=== PATIENT | male | born 1950 | race Caucasian/White ===

== ENCOUNTER 2019-04-30 16:51 | Emergency (ER) | payer OTHER ==
[~2019-04-30] VITALS: Ht 180.3 cm; Wt 106.6 kg
[~2019-04-30 16:51] MED LIST: ASA81 PO; CILO100T PO; CLON0.2T PO; COLL30OI2 TP; DOCU250C14 PO; DOXA2TAB2 PO; ESOM40CA PO; GLYB5TAB7 PO; HYDR-3917 PO; IBUP-1970 PO; INSU100V11 SQ; METO-290 PO; MIDO5TAB PO; MYCO500T PO; NEBI5TAB3 PO; NYST15PO2 TP; ONDA4TAB5 PO; OXYC20TA55 PO; POLY17PO4 PO; RIVA10TA PO; ROSU10TA PO; SEVE800T8 PO; SSREG SUBCUT
[2019-04-30 17:00] VITALS: BP_SYST 113
--- NOTE | 2019-04-30 17:13 | NUR ---
Patient presented to ER with cough & congestion. Patient A&Ox4, respiations labored, placed on pulse-ox monitor upon arrival sats 98%. Patient arrived with daughter, per patient & daughter pt was seen at Dr. Morris office prior to ER with cough and congestion x1week. Patient was instructed to seek medical attention in ER. Patient states he was hospitalized 04/16/19 for Polycystectomy and is on Dialysis ././Sat.
--- NOTE | 2019-04-30 17:15 | NUR ---
Patient to ER bed 1 to gown for evaluation. Side rails up. Report given to Casi TREVINO.
--- NOTE | 2019-04-30 17:29 | NUR ---
ER Dr. Strauss at bedside examining patient.
[2019-04-30 18:03] LABS: BASOPHILS % (AUTO) 0.5 % (0.0-2.0); EOSINOPHILS # (AUTO) 0.2 K/uL (0.0-0.4); EOSINOPHILS % (AUTO) 1.5 % (0.0-4.0); HEMATOCRIT 32.6 % (36-54); HEMOGLOBIN 9.9 g/dL (14.0-18.0); LYMPHOCYTES # (AUTO) 1.3 K/uL (1.0-5.5); LYMPHOCYTES % (AUTO) 13.2 % (20.5-51.5); MEAN CORPUSCULAR HEMOGLOBIN 27 pg (27-31); MEAN CORPUSCULAR HGB CONC 31 % (32-36); MEAN CORPUSCULAR VOLUME 88 fL (79.0-98.0); MONOCYTES # (AUTO) 1.2 K/uL (0.0-1.0); MONOCYTES % (AUTO) 11.5 % (1.7-9.3); NEUTROPHILS # (AUTO) 7.5 K/uL (1.8-7.7); NEUTROPHILS % (AUTO) 73.3 % (40.0-70.0); PLATELET COUNT (AUTO) 150 K/uL (130-430); RED BLOOD CELL COUNT(AUTO) 3.69 MIL/uL (4.2-6.2); RED CELL DISTRIBUTION WIDTH 20.2 % (9.0-15.0); WHITE BLOOD COUNT (AUTO) 10.2 K/uL (4.8-10.8)
[2019-04-30 18:14] LABS: CALCIUM 9.6 mg/dL (8.4-11.0); CREATININE 4.46 mg/dL (0.55-1.30); POTASSIUM 4.4 mmol/L (3.5-5.1)
[2019-04-30 18:19] LABS: ALBUMIN 2.2 g/dL (3.4-4.8); TOTAL BILIRUBIN 0.7 mg/dL (0.0-1.0)
[2019-04-30] MEDS ORDERED: PIPERACILLIN/TAZO 3.375 GM in NS 50 ML IV ONE (18:30)
[2019-04-30] MEDS ORDERED: VANCOMYCIN HCL 1,000 MG in NS 250 ML IV ONE (18:30)
[2019-04-30] MEDS ORDERED: MORPHINE 4 MG/ML INJ. SYRINGE IVP ONE (18:45)
[2019-04-30] MEDS ORDERED: VANCOMYCIN HCL 1000 MG/VIAL IV ONE ×3 (18:45→19:34)
[2019-04-30] MEDS ORDERED: PIPERACILLIN/TAZOBACTAM 3.375 GM/VIAL (ZOSYN) IV ONE ×2 (18:47→19:27)
--- NOTE | 2019-04-30 19:02 | NUR ---
Report given to Kehinde TREVINO
--- NOTE | 2019-04-30 19:50 | NUR ---
Pt refuses to be admitted to the hospital. Dr. Strauss states pt may leave after the completion of antibiotics.
--- NOTE | 2019-04-30 20:30 | NUR ---
Pt's family is requesting to speak with ER MD to request a prescription for IV antibiotics to be given during dialysis treatment
--- NOTE | 2019-04-30 20:30 | NUR ---
Ajay aggarwal in ED - 04/30/19 at 2105 by [email or web address] RAMESH Stewart at bedside examining patient.
--- NOTE | 2019-04-30 20:45 | NUR ---
Dr. Stewart at bedside speaking with family
[2019-04-30 22:25] VITALS: BP_SYST 113
--- NOTE | 2019-04-30 22:25 | NUR ---
Patient does not wish to proceed with medical care recommended by Dr. Strauss. Patient given information related to possible complications, up to and including , which could occur as a result of leaving hospital at this time. Patient verbalizes understanding of risks involved leaving against medical advice. Patient has signed AMA form.
== END 2019-04-30 22:55 | disposition left against medical advice (07) ==
LOC: SED 16:51
DX: J18.1 Lobar pneumonia, unspecified organism (principal); R79.89 Other specified abnormal findings of blood chemistry; I10 Essential (primary) hypertension; F03.90 Unspecified dementia, unspecified severity, without behavioral disturbance, psychotic disturbance, mood disturbance, and anxiety; Z99.2 Dependence on renal dialysis; Z79.82 Long term (current) use of aspirin; Z79.899 Other long term (current) drug therapy
CPT/HCPCS: 36415; 36600; 71045; 80053; 82803; 83605; 84484; 85025; 87040; 93005; 96365; 96366; 96367; 96375; 99284; J2270; J2543; J3370

== ENCOUNTER 2019-05-05 12:09 | Inpatient (IN) | payer OTHER ==
[~2019-05-05] VITALS: Ht 180.3 cm; Wt 103.0 kg
[2019-05-05 12:33] VITALS: BP_SYST 158
--- NOTE | 2019-05-05 12:38 | NUR ---
Placed in room 07 . Placed on cloth hand, blood pressure machine and pulse oximeter. To gown for exam. Side rails up.
--- NOTE | 2019-05-05 12:38 | NUR ---
Dialysis Sh[facility], Sat. Shunt to [facility]
--- NOTE | 2019-05-05 12:39 | NUR ---
ER Dr. Wall at bedside examining patient.
--- NOTE | 2019-05-05 12:40 | NUR ---
Patient presented to ER with C/o Nausea nad pain. Patient A&Ox4, skin pink, cap refill brisk pain 8/10, nausea, denies V/D. Patient states pain is in rectum 8/10 with nausea since last week. Patient states he was seen in [facility] ER 04/30/19 pt left AMA.
[2019-05-05] MEDS ORDERED: HYDROcodone/ACETAMIN 5-325 MG TAB (NORCO/ VICODIN) PO ONE (13:00)
[2019-05-05] MEDS ORDERED: ONDANSETRON 4 MG ODT TAB PO ONE (13:15)
--- NOTE | 2019-05-05 13:15 | NUR ---
Pt requested Zofran for nausea. Dr. Wall notified. Orders to be received.
[2019-05-05 13:16] LABS: BASOPHILS # (AUTO) 0.1 K/uL (0.0-0.2); BASOPHILS % (AUTO) 0.6 % (0.0-2.0); EOSINOPHILS # (AUTO) 0.1 K/uL (0.0-0.4); EOSINOPHILS % (AUTO) 1.3 % (0.0-4.0); HEMATOCRIT 32.9 % (36-54); HEMOGLOBIN 10.1 g/dL (14.0-18.0); LYMPHOCYTES # (AUTO) 1.1 K/uL (1.0-5.5); LYMPHOCYTES % (AUTO) 12.4 % (20.5-51.5); MEAN CORPUSCULAR HEMOGLOBIN 27 pg (27-31); MEAN CORPUSCULAR HGB CONC 31 % (32-36); MEAN CORPUSCULAR VOLUME 88 fL (79.0-98.0); MONOCYTES # (AUTO) 1.1 K/uL (0.0-1.0); MONOCYTES % (AUTO) 11.9 % (1.7-9.3); NEUTROPHILS # (AUTO) 6.6 K/uL (1.8-7.7); NEUTROPHILS % (AUTO) 73.8 % (40.0-70.0); PLATELET COUNT (AUTO) 148 K/uL (130-430); RED BLOOD CELL COUNT(AUTO) 3.74 MIL/uL (4.2-6.2); RED CELL DISTRIBUTION WIDTH 20.1 % (9.0-15.0)
[2019-05-05 13:31] LABS: CALCIUM 10.4 mg/dL (8.4-11.0); CREATININE 4.74 mg/dL (0.55-1.30); POTASSIUM 4.4 mmol/L (3.5-5.1)
[2019-05-05 13:33] LABS: INR 1.1 (0.80-1.20)
[2019-05-05 13:35] LABS: ALBUMIN 2.3 g/dL (3.4-4.8)
--- NOTE | 2019-05-05 14:22 | NUR ---
called dr correa, per dr garcia
--- NOTE | 2019-05-05 14:27 | NUR ---
Medication reconciliation completed with information provided by pt. Any prior medication reconciliation on file was reviewed and corrected.
[2019-05-05] MEDS ORDERED: LEVOFLOXACIN 500 MG/D5W 100 ML IV ONE (14:30)
--- NOTE | 2019-05-05 15:23 | NUR ---
ADMISSION NOTE Received patient from ER via gurney. Patient admitted with diagnosis of pneumonia. Patient is awake, alert, oriented X4. Patient oriented to hospital room, call light, toileting, pain management and safety-teach back done. Personal belongings checked and Belongings List documented. Call light within reach.
--- NOTE | 2019-05-05 15:30 | NUR ---
Patient will be admitted to [facility]. Admitted to telemetry unit. Will go to room 133A. Summary report printed. Report will be given at bedside.
[2019-05-05 15:50] VITALS: BP_SYST 125
--- NOTE | 2019-05-05 16:00 | NUR ---
INITIAL NOTE RECEIVED PT IN BED, NO S/S OF DISTRESS OR SOB NOTED, PT HAS NO C/O PAIN AT THIS TIME, PT IN STABLE CONDITION, PT AAOX4, VERBAL, PT HAS AN IV CATHETER, PATENT, NO SIGNS OF INFECTION OR INFILTRATION NOTED, SALINE LOCK. PT HAS A HEEL LIFT BOOT FOR LEFT LEG, SLEEVE ON RIGHT STUMP. BED AT LOWEST POSITION, CALL LIGHT WITHIN REACH, WILL CONTINUE TO MONITOR PT FOR ANY CHANGES, FALL AND SAFETY PRECAUTIONS IN PLACE. BED ALARM ON. PT HAS A SHUNT ON LEFT UPPER ARM.
--- NOTE | 2019-05-05 17:06 | NUR ---
CONSULTATION PAGED/CALLED [facility] Who was Not[facility]: SPOKE WITH DENICE FROM [facility]ANGE Consulting Physician: IS SINK CUTTER FOR [facility]AYASH[facility] TRAN [place] Weaver Specialty: NEPHRO Ordering Physician:
[2019-05-05] MEDS ORDERED: oxyCODONE HCL 10 MG TAB.ER.12H PO ONE (17:15)
[2019-05-05] MEDS: METOCLOPRAMIDE HCL 10 MG TABLET PO SCH (17:22)
[2019-05-05] MEDS: glyBURIDE 5 MG TABLET PO SCH (17:29)
[2019-05-05] MEDS: cefTRIAXone 1 GM in D5W 50 ML IV SCH (17:29)
[2019-05-05] MEDS ORDERED: D5W 1,000 ML IV PRN (17:30)
[2019-05-05] MEDS: INSULIN REGULAR, HUMAN 100 UNITS/ML, 10 ML VIAL (humuLIN R) SUBCUT PRN (17:30)
[2019-05-05] MEDS: RIVAROXABAN 10 MG TABLET PO SCH (17:47)
--- NOTE | 2019-05-05 18:18 | NUR ---
CLOSING NOTE PT IN BED, NO S/S OF DISTRESS OR SOB NOTED, PT HAS NO C/O PAIN AT THIS TIME, PT IN STABLE CONDITION, PT AAOX4, VERBAL, PT HAS AN IV CATHETER, PATENT, NO SIGNS OF INFECTION OR INFILTRATION NOTED, SALINE LOCK. PT HAS A HEEL LIFT BOOT FOR LEFT LEG, SLEEVE ON RIGHT STUMP. BED AT LOWEST POSITION, CALL LIGHT WITHIN REACH, WILL ENDORSE CARE OF PT TO INCOMING NURSE, FALL AND SAFETY PRECAUTIONS IN PLACE. BED ALARM ON.
--- NOTE | 2019-05-05 19:10 | NUR ---
OPENING NOTES RECEIVED PATIENT IN BED AAOX 4. FAMILY AT BEDSIDE. BREATHING UNLABORED ON 02 2L NC. DENIES PAIN AT THIS TIME. BED IN LOWEST LOCKED POSITION WITH BED ALARM ON. CALL LIGHT WITH IN REACH.
[2019-05-05] MEDS: cloNIDine HCL 0.2 MG TABLET PO SCH (21:00)
[2019-05-05 21:15] VITALS: BP_SYST 138
[2019-05-05] MEDS: DOXAZOSIN MESYLATE 2 MG TABLET PO SCH (21:22)
[2019-05-05] MEDS: CILOSTAZOL 50 MG TABLET (PLETAL) PO SCH (21:23)
[2019-05-05] MEDS: METOPROLOL TARTRATE 50 MG TABLET PO SCH (21:23)
[2019-05-05] MEDS: oxyCODONE HCL 10 MG TAB.ER.12H PO SCH (21:24)
[2019-05-05] MEDS: AZITHROMYCIN 500 MG in NS 250 ML IV SCH (21:35)
--- NOTE | 2019-05-05 21:35 | NUR ---
MED PASS PATIENT DUE MEDICATIONS GIVEN AND TOLERATED. ROUTINE FINGER STICK SUGAR 132. DUE ANTIBIOTIC INFUSED. IV LINE INTACT AND PATENT.
[2019-05-05] MEDS: INSULIN GLARGINE 100 UNITS/ML 10 ML VIAL SUBCUT SCH (21:38)
[2019-05-05] MEDS: LevALBUTEROL HCL 1.25 MG/0.5 ML *CONC.* VIAL.NEB (XOPENEX CONC.) INH SCH (22:05)
[2019-05-05] MEDS: ONDANSETRON 4 MG ODT TAB PO PRN (22:06)
--- NOTE | 2019-05-05 22:06 | NUR ---
NAUSEA PATIENT C/O NAUSEA. ZOFRAN GIVEN ORDERED. EMESIS BAG AT BEDSIDE.
[2019-05-06 00:40] VITALS: BP_SYST 125
--- NOTE | 2019-05-06 00:40 | NUR ---
ROUNDS PATIENT RESTING IN BED. NO DISTRESS NOTED. VITAL SIGNS STABLE. CALL LIGHT WITH IN REACH. BED ALARM ON.
--- NOTE | 2019-05-06 02:51 | NUR ---
ROUNDS PATIENT RESTING IN BED. BREATHING UNLABORED. NO DISTRESS NOTED.
[2019-05-06] MEDS: ONDANSETRON 4 MG ODT TAB PO PRN ×2 (03:54→09:02)
--- NOTE | 2019-05-06 03:54 | NUR ---
NAUSEA PATIENT C/O NAUSEA. MEDICATED WITH ZOFRAN ORDERED. DENIES ANY PAIN.
[2019-05-06] MEDS: oxyCODONE HCL 10 MG TAB.ER.12H PO SCH ×3 (05:40→21:39)
--- NOTE | 2019-05-06 05:43 | NUR ---
MED PASS PATIENT DUE MEDICATIONS GIVEN. AM FINGER STICK SUGAR 158. COVERED WITH 2 UNITS REGULAR INSULIN PER SLIDING SCALE ORDER.
[2019-05-06] MEDS: INSULIN REGULAR, HUMAN 100 UNITS/ML, 10 ML VIAL (humuLIN R) SUBCUT PRN (05:44)
--- NOTE | 2019-05-06 06:43 | NUR ---
CLOSING NOTES PATIENT RESTING IN BED. BREATHING UNLABORED ON 02 2L NC. DENIES PAIN AT THIS TIME. IV LINE INTACT TO RFA. PATIENT NEEDS ATTENDED. BED IN LOWEST LOCKED POSITION WITH ALARM ON. CALL LIGHT WITH IN REACH. PATIENT STILL C/O NAUSEA AND REQUESTING ZOFRAN CHANGE TO IV. WILL NOTIFY WITH DR JOSE.
[2019-05-06] MEDS: LevALBUTEROL HCL 1.25 MG/0.5 ML *CONC.* VIAL.NEB (XOPENEX CONC.) INH SCH ×3 (07:09→23:05)
--- NOTE | 2019-05-06 07:30 | NUR ---
Opening Note: Patient in bed resting. Patient denies pain and discomfort. Breathing is even and unlabored with no distress noted. IV patent and intact. Safety precautions in place; bed in lowest position, wheels locked, side rails x3, bed alarm activated and call light within reach. Will continue to monitor.
[2019-05-06 08:45] VITALS: BP_SYST 104
[2019-05-06] MEDS: CILOSTAZOL 50 MG TABLET (PLETAL) PO SCH ×2 (08:51→21:38)
[2019-05-06] MEDS: cefTRIAXone 1 GM in D5W 50 ML IV SCH (08:51)
[2019-05-06] MEDS: ASPIRIN 81 MG TAB.CHEW PO SCH (08:52)
[2019-05-06] MEDS: PANTOPRAZOLE SODIUM 40 MG TAB PO SCH (08:52)
[2019-05-06] MEDS: MYCOPHENOLATE MOFETIL 250 MG CAPSULE PO SCH (08:52)
[2019-05-06] MEDS: ATORVASTATIN 20 MG TABLET PO SCH (08:52)
[2019-05-06] MEDS: glyBURIDE 5 MG TABLET PO SCH ×2 (08:52→17:43)
[2019-05-06] MEDS: METOCLOPRAMIDE HCL 10 MG TABLET PO SCH ×3 (08:52→17:43)
[2019-05-06] MEDS: RIVAROXABAN 10 MG TABLET PO SCH ×2 (08:54→17:43)
[2019-05-06] MEDS: cloNIDine HCL 0.2 MG TABLET PO SCH ×3 (08:55→21:00)
[2019-05-06] MEDS: DOXAZOSIN MESYLATE 2 MG TABLET PO SCH ×2 (08:55→21:00)
[2019-05-06] MEDS: METOPROLOL TARTRATE 50 MG TABLET PO SCH ×2 (08:55→21:00)
[2019-05-06] MEDS: SANTYL OINTMENT TP SCH (09:00)
--- NOTE | 2019-05-06 09:05 | NUR ---
Paging Dr. Morris: Paging Dr. Morris regarding patients complain of itchiness, patient also states that PO Zofran isn't very effective, requesting IV Zofran. Awaiting callback and orders.
--- NOTE | 2019-05-06 10:04 | NUR ---
Rounds: Patient in bed resting, forge shop machine repairer at bedside. Will continue to monitor.
--- NOTE | 2019-05-06 10:15 | NUR ---
Nutrition Update Arthur Scale 18 noted. Pt admitted for pneumonia. Diet: [facility] BMI: 31.7 kg/m2 RD to follow per nutrition care standards.
[2019-05-06] MEDS: DIPHENHYDRAMINE INJ 50 MG/ML VIAL IVP PRN (10:40)
--- NOTE | 2019-05-06 12:10 | NUR ---
Rounds: Patient in bed resting. Patient denies pain and discomfort. Breathing is even and unlabored with no distress noted. personalized living assistant at bedside. Morning medications tolerated well. Safety precautions in place and call light within reach. No needs at this time. Will continue to monitor.
[2019-05-06 12:50] VITALS: BP_SYST 101
--- NOTE | 2019-05-06 13:54 | NUR ---
Spoke to Dr. Peterson: Spoke to Dr. Peterson, patient states he is usually on [place], per Dr. Peterson "go ahead and order it."
--- NOTE | 2019-05-06 14:10 | NUR ---
Rounds: Patient in bed resting, sisters at bedside. No distress noted. Will continue to monitor.
--- NOTE | 2019-05-06 16:07 | NUR ---
Rounds: Patient in bed resting. Family at bedside. Patient denies pain and discomfort. Breathing is even and unlabored with no distress noted. Safety precautions in place and call light within reach. No needs at this time. Will continue to monitor.
[2019-05-06 16:24] VITALS: BP_SYST 92
--- NOTE | 2019-05-06 16:55 | NUR ---
WOUND EVALUATION: Wound Consult received from Dr. Morris. Thank you, Dr. Morris, for the consult. Patient received in a [place] Bed with an Atmos-Air 9000 mattress, awake, alert, and oriented. Patient is able to turn in bed independently. Arthur Score is a 16. Past Medical History: Diabetes Mellitus, Hypertension, End-Stage Renal Failure, COPD, severe Peripheral Vascular Disease of the lower extremities, Renal Transplant, Right Below Knee Amputation, Gangrene of the left foot. Recent Labs: WBC 9.0, RBC 3.74, hemoglobin 10.1, hematocrit 32.9, chloride 96, BUN 37, creatinine 4.74, GFR 13, glucose 162, albumin 2.3, PTT 24.4. Microbiology: Blood culture results �2 in progress. MRSA screen results in progress. Intrinsic factors that delay wound healing: Diabetes Mellitus, Hypertension, End-Stage Renal Failure, severe Peripheral Vascular Disease for lower extremities. Extrinsic factors that delay wound healing: Decreased mobility. Wound Assessment: 1. Left Great Toe: Dry gangrene from ischemia, present on admission. 2. Left Second toe: Dry gangrene from ischemia, present on admission. Recommend: [place] involved areas with Betadine. Perform site care daily. Reassess sites every shift. 3. Left Fourth Toe, Distal Aspect, near PIP: Dry gangrene from ischemia, present on admission. Wound measures 1.2 cm x 0.6 cm. Recommend: [place] involved area with Betadine. Perform site care daily. Reassess site every shift. 4. Left posterior heel: Unstageable pressure ulcer, present on admission. Wound bed has 100% black eschar. No odor, no drainage. Periwound intact. Wound measures 4.7 cm x 7.5 cm. Recommend: [place] involved area with Betadine. Perform site care daily. Reassess site every shift. 5. Right BKA, Distal Medial Aspect: Nonhealing wound, present on admission. Wound bed has 100% yellow tissue. No odor, scant yellow purulent drainage. Periwound intact. Wound measures 0.8 cm x 0.3 cm x 0.1 cm. Wound has a vertical, linear shape. Recommend: Cleanse wound with normal saline. Apply moisture barrier cream to gianfranco-wound. Apply Santyl (patient's own medication) to wound bed. Cover with foam dressing. Perform wound care daily, and as needed for dressing soiling or dislodgement. 6. Buttock (Gluteal Sulcus): Intertrigo with nonintact skin. Wound bed has 100% pink tissue. No odor, no drainage. Periwound intact. Wound measures 0.2 cm x 0.2 cm. 7. Left Buttock Two dry excoriations, shaped like an upside down "Y", with 90% brown scab, 10% pink tissue, present on admission. Recommend: Cleanse involved areas with mild soap and water. Pat dry. Apply moisture barrier cream to involved areas. Cover sites with Sacral foam dressing. Perform site care daily, and as needed for dressing soiling or dislodgment. Also recommend: Encourage and assist patient as needed with repositioning [id number] only every 2 hours with pillow support (keep one pillow above and one pillow below wound areas so that it floats (your hand should be able to slide underneath the buttock freely). Off-load pressure areas with pillows for pressure re-distribution. Offload, elevate and float right residual limb, and left heel (keep heel in patient's offloading boot. Perform skin care and monitor skin integrity Q shift. Use moisture barrier cream on buttocks and other moisture susceptible areas QID and as needed for soiling. Place patient on a low air-loss mattress.
--- NOTE | 2019-05-06 17:00 | NUR ---
Wound Care: Patient seen by WCN. Orders received regarding wound care to right stump, left heel and toes toes and sulcus area. Wound care done per orders. Patient tolerated well.
[2019-05-06] MEDS: SEVELAMER HCL 800 MG TABLET PO SCH (17:43)
--- NOTE | 2019-05-06 18:41 | NUR ---
Closing Note: Patient in bed resting. Patient denies pain and discomfort. Breathing is even and unlabored with no distress noted. IV patent and intact. Safety precautions in place; bed in lowest position, wheels locked, side rails x3, bed alarm activated and call light within reach. All needs met. Will endorse plan of care to NOC, nurse.
--- NOTE | 2019-05-06 19:15 | NUR ---
OPENING NOTES RECEIVED PATIENT IN BED AAOX4. FAMILY AT BEDSIDE. BREATHING UNLABORED ON 02 2L NC. DENIES ANY PAIN AT THIS TIME. BED IN LOWEST LOCKED POSITION WITH ALARM ON. CALL LIGHT WITH IN REACH.
--- NOTE | 2019-05-06 20:17 | NUR ---
BLOOD SUGAR ROUTINE FINGER STICK SUGAR 91. FAMILY FEEDING PATIENT WITH OWN FOOD.
[2019-05-06] MEDS: INSULIN GLARGINE 100 UNITS/ML 10 ML VIAL SUBCUT SCH (21:00)
[2019-05-06 21:31] VITALS: BP_SYST 98
[2019-05-06] MEDS: AZITHROMYCIN 500 MG in NS 250 ML IV SCH (21:46)
--- NOTE | 2019-05-06 21:46 | NUR ---
MED PASS PATIENT DUE MEDICATIONS GIVEN AND TOLERATED. ANTIBIOTIC INFUSED. IV LINE INTACT. VITAL SIGNS STABLE.
[2019-05-07] VITALS (10 sets, daily range): BP systolic 79–107
--- NOTE | 2019-05-07 01:17 | NUR ---
ROUNDS PATIENT RESTING IN BED. BREATHING UNLABORED. VITAL SIGNS STABLE. CALL LIGHT WITH IN REACH.
[2019-05-07] MEDS: DIPHENHYDRAMINE INJ 50 MG/ML VIAL IVP PRN ×2 (03:57→09:26)
--- NOTE | 2019-05-07 03:57 | NUR ---
ITCHING PATIENT MEDICATED WITH BENADRYL IV FOR C/O ITCHING ON ABDOMEN AND ARMS.
--- NOTE | 2019-05-07 04:45 | NUR ---
AIR MATTRESS PATIENT BED CHANGED TO AIR MATTRESS ORDERED FOR WOUND MANAGEMENT AND PREVENTION.
[2019-05-07] MEDS: oxyCODONE HCL 10 MG TAB.ER.12H PO SCH ×2 (05:03→14:23)
--- NOTE | 2019-05-07 06:15 | NUR ---
CLOSING NOTES PATIENT RESTING IN BED. BREATHING UNLABORED ON 02 2LNC. PATIENT NEEDS ATTENDED. BED IN LOWEST LOCKED POSITION WITH ALARM ON. CALL LIGHT WITH IN REACH.
[2019-05-07] MEDS: LevALBUTEROL HCL 1.25 MG/0.5 ML *CONC.* VIAL.NEB (XOPENEX CONC.) INH SCH ×3 (07:24→23:41)
[2019-05-07] MEDS: glyBURIDE 5 MG TABLET PO SCH ×2 (08:00→17:38)
--- NOTE | 2019-05-07 08:08 | NUR ---
notes- Patient feels light headed, initial blood pressure is 84/46 repeates in 5 minutes and went down to 79/30, hr is 86. patient lay flat on bed and went up to 107/41. Spoke to Dr. Morris and made aware. Per MD let patient to drink more fluids. patient made aware and informed to him to drink more fluids.
--- NOTE | 2019-05-07 08:37 | NUR ---
Discharge Planning: DCP faxed pt referral to [facility] (f [phone] p [phone]) DCP to follow up. Addendum: 05/07/19 at 1039 by Benita Galan DP Jemal Whitaker at [facility] (f [phone] p [phone]) PT notes are needed. DCP made CM aware.
[2019-05-07] MEDS: SANTYL OINTMENT TP SCH (08:51)
[2019-05-07] MEDS: cefTRIAXone 1 GM in D5W 50 ML IV SCH (08:51)
[2019-05-07] MEDS: MYCOPHENOLATE MOFETIL 250 MG CAPSULE PO SCH (08:52)
[2019-05-07] MEDS: PANTOPRAZOLE SODIUM 40 MG TAB PO SCH (08:52)
[2019-05-07] MEDS: ASPIRIN 81 MG TAB.CHEW PO SCH (08:53)
[2019-05-07] MEDS: METOCLOPRAMIDE HCL 10 MG TABLET PO SCH ×3 (08:53→17:38)
[2019-05-07] MEDS: ATORVASTATIN 20 MG TABLET PO SCH (08:53)
[2019-05-07] MEDS: SEVELAMER HCL 800 MG TABLET PO SCH ×3 (08:54→17:36)
[2019-05-07] MEDS: CILOSTAZOL 50 MG TABLET (PLETAL) PO SCH ×2 (08:54→22:41)
[2019-05-07] MEDS: RIVAROXABAN 10 MG TABLET PO SCH ×2 (08:59→17:38)
[2019-05-07] MEDS: METOPROLOL TARTRATE 50 MG TABLET PO SCH ×2 (09:00→21:00)
[2019-05-07] MEDS: cloNIDine HCL 0.2 MG TABLET PO SCH ×3 (09:00→21:00)
[2019-05-07] MEDS: DOXAZOSIN MESYLATE 2 MG TABLET PO SCH ×2 (09:00→21:00)
--- NOTE | 2019-05-07 09:00 | NUR ---
notes-pt did not eat his breakfast. Micronase not given.
--- NOTE | 2019-05-07 10:00 | NUR ---
notes-Resting in bed, blood pressure is better 103/55. denies any chest pain or discomfort. feels itchy, bendryl was given. no distress noted. enc. to call for help as needed. will monitor.
--- NOTE | 2019-05-07 10:40 | NUR ---
DC PLANNING ASSESSMENT: CM met with patient at bedside for DC planning Assessment. Patient is alert and oriented x 4. Patient lives at home with family. Patient never left home alone and has always family member at home. Patient was only agreeable to [facility] or back home with home health. Patient gave consent to contact his daughter (Edith Ramírez), who is very involved in patient's care. CM spoke with Edith over the phone to discuss dc planning. Edith stated that she is now agreeable to SNF. However, patient is not agreeable to SNF. Patient is only agreeable to [facility] for rehab. If patient will be Discharged home -- wants [facility] Provider [phone]. Daughter also wants to be informed ahead of time if patient will be discharge home to make arrangements at her work. Informed Patient's daughter CM/SS/DCP will contact her with any questions or concern with DC plan. CM to follow up as needed.
[2019-05-07] MEDS: GLUCOSE 15 GM GEL (in 37.5 GM TUBE) PO PRN ×2 (12:12→12:55)
--- NOTE | 2019-05-07 12:17 | NUR ---
Dietitian Recommendations *Recommend [facility] Renal Standard diet w/ Yamil BID. Modular for wound healing will provide additional 160 kcal and 5 gm protein daily. *Consider adding Renal specific MVI and megace. *If PO intake does not improve by next RD visit, consider adding Nepro BID. Please see nutritional assessment for details. PENITENTIARY, RD
--- NOTE | 2019-05-07 12:19 | NUR ---
low blood sugar- Pt blood sugar is 55, pt awake and oriented. watching TV. was given apple juice and glucose gel of 15 grams. refused to eat lunch. Per patient, he is waiting for his family to bring him food. will check blood sugar after 15 minutes.
--- NOTE | 2019-05-07 12:59 | NUR ---
BS still low: Accu check =57 after the 1st Glucose gel given.Patient has no sign of Hypoglycemia, and refuses to eat hospital food, states his family is bringing home food. Give the 2nd Glucose Gel by mouth as ordered. Will continue monitor.
--- NOTE | 2019-05-07 14:00 | NUR ---
notes- blood sugar still low, 52 after the 2nd glucose gel and after drinking apple 3 packets of apple juice. family at bedside now and patient already eat bread about 10 minutes ago. Pt stated that he takes a lot of sugar already. two accucheck machines was used but results still the same. pt is asymptomatic. Spoke to DR. Morris and made aware. stated to give her more juice.
[2019-05-07] MEDS: ONDANSETRON HCL 4 MG/2 ML VIAL IVP PRN ×2 (14:23→20:09)
[2019-05-07] MEDS: DEXTROSE 50%-WATER 50 ML DISP.SYRIN IVP PRN ×2 (14:31→20:54)
--- NOTE | 2019-05-07 15:30 | NUR ---
notes- blood sugar went up to 106 at this time. Pt. is talking to family at bedside. no distress noted.
--- NOTE | 2019-05-07 18:26 | NUR ---
notes- Blood sugar is 94. pt eats his dinner tray. Dr. Kangium here and made aware. no acute distress noted. all needs meet through out shift. will endorse.
--- NOTE | 2019-05-07 19:10 | NUR ---
REPORT: RECEIVED BEDSIDE REPORT FROM URIEL BANKS. PATIENT IN BED WITH MANY VISITORS AT BEDSIDE.BROUGHT IN FOODS FROM HOME. DENIES PAIN NOR SOB. TALKING TO FAMILIES AT BEDSIDE. CALL LIGHT WITHIN REACH. EDUCATED TO CALL IF NEEDS SOMETHING OR HELP. BED IN LOW POSITION.ON TELE MONITOR.
[2019-05-07] MEDS ORDERED: POLYETHYLENE GLYCOL 3350, 17 GM/ POWD.PACK PO ONE ×2 (19:30)
--- NOTE | 2019-05-07 20:15 | NUR ---
VITAL SIGNS TAKEN. BP ON LOW SIDE. BP 97/46.PREVIOUS BP WERE <100 BP. ONE FAMILY MEMBER IN THE ROOM. DENIES PAIN THIS TIME. REFUSE TO PLACE PILLOW ON RIGHT KNEE BELOW AMPUTEE.DRESSING DRY AND INTACT. LEFT FOOT ON PREVALON BOOTS. TOES GANGRENOUS.REFUSE PILLOW WELL.
--- NOTE | 2019-05-07 20:45 | NUR ---
low blood sugar: patient complain of feeling dizzy while laying in bed. oriented x3. BLOOD SUGAR 77MG/DL.REFUSE ANY ORAL DRINKS AND MEDS DUE TO NAUSEA /VOMITING. FEELS SHAKY AND HEADACHE. MOTOR EQUIPMENT SERGEANT DIDA MADE AWARE AND AGREED TO GIVE D50 IV .WILL PAGE AND DID WAITING TO CALL BACK AND PT. MADE aware.
--- NOTE | 2019-05-07 20:49 | NUR ---
paged paged for Dr Morris, dialed pager#: .
--- NOTE | 2019-05-07 20:54 | NUR ---
D50 IV PUSH GIVEN ,IV SITE CLEAR.
[2019-05-07] MEDS: AZITHROMYCIN 500 MG in NS 250 ML IV SCH (20:58)
[2019-05-07] MEDS: INSULIN GLARGINE 100 UNITS/ML 10 ML VIAL SUBCUT SCH (21:00)
--- NOTE | 2019-05-07 21:31 | NUR ---
REPEAT BLOOD SUGAR IS 126MG/DL.
[2019-05-07] MEDS: oxyCODONE HCL 5 MG TABLET PO PRN (22:37)
--- NOTE | 2019-05-07 22:37 | NUR ---
PAIN: COMPLAIN OF LOW BACK AND AND FOOT PAIN. BP 91/46 88 18 96%.FEELS WEAK ,STATED DOES NOT FEEL GOOD. TOLD HIM WILL PAGE AGAIN.
[2019-05-07] MEDS: BENZONATATE 100 MG CAPSULE (TESSALON) PO SCH (22:38)
[2019-05-07] MEDS: MEGESTROL ACETATE 400 MG/10 ML UDC PO SCH ×2 (22:41→23:23)
--- NOTE | 2019-05-07 22:54 | NUR ---
paged paged for Dr Morris, dialed pager#: .
--- NOTE | 2019-05-07 23:00 | NUR ---
MD CALL BACK: SPOKE TO DR. MONAE ABOUT, LOW BLOOD SUGAR AND LOW BLOOD PRESSURE FEELS DIZZY ,WEAK REFUSING ORAL FLUIDS.WITH ORDERS.
[2019-05-07] MEDS ORDERED: NS 500 ML IV ONE (23:15)
--- NOTE | 2019-05-07 23:20 | NUR ---
NORMAL SALINE 500ML INITIATED AT 250ML/HR FOR LOW BP SUPPORT. MAIL CARRIERS SUPERVISOR AWARE ,SAID ITS OKAY TO GIVE SINCE PATIENT IS FOR HD IN AM.WILL MONITOR CLOSELY FOR CARDIOPULMONARY DISTRESS.BP AFTER 200MLML INFUSED 85/45. WILL RECHECK AND MONITOR.
[2019-05-08] VITALS (8 sets, daily range): BP systolic 85–132
--- NOTE | 2019-05-08 00:35 | NUR ---
BP 95/45 HR 85 95% RR 18.PATIENT STATED IM OKAY. FEELING COLD. MORE COVER PROVIDED.
[2019-05-08] MEDS: D5NS 1,000 ML IV SCH ×3 (01:43→20:15)
[2019-05-08] MEDS: DIPHENHYDRAMINE INJ 50 MG/ML VIAL IVP PRN ×2 (02:13→20:37)
--- NOTE | 2019-05-08 02:13 | NUR ---
COMPLAIN OF ITCHING.NO RASHES. SKIN DRY AND WARM.BENADRYL 25 MG IV GIVEN.
--- NOTE | 2019-05-08 04:00 | NUR ---
WOKE UP ,SCRATCHING ,ASKED FOR BENADRYL ,TOLD HIM WAS GIVEN 2 1/2 HRS AGO. UNDERSTOOD.
--- NOTE | 2019-05-08 04:05 | NUR ---
BP 105/67 ,SAT 97%HR 90/MIN.WILL GIVE MEDS IF AVAILABLE
[2019-05-08] MEDS: LevALBUTEROL HCL 1.25 MG/0.5 ML *CONC.* VIAL.NEB (XOPENEX CONC.) INH PRN ×2 (04:11→12:00)
--- NOTE | 2019-05-08 05:30 | NUR ---
PATIENT REFUSE TO CHANGE LINENS,SAID WANT TO SLEEP.
[2019-05-08] MEDS: oxyCODONE HCL 5 MG TABLET PO PRN ×2 (06:25→14:03)
--- NOTE | 2019-05-08 06:25 | NUR ---
WOKE UP CALLING LOUD FOR THE NURSE. YELLING MY BACK HURTS ,GIVE ME MY MEDICINE. BP 106/66. PAIN MEDS GIVEN PO. BLOOD SUGAR 87MG/DL. REFUSE JUICE TO DRINK.WILL MONITOR CLOSELY.
--- NOTE | 2019-05-08 07:01 | NUR ---
CLOSING: ALL NEEDS WERE ATTENDED.NO ACUTE CARDIOPULMONARY DISTRESS. DROWSY THIS TIME DUE TO PAIN MED. STILL WITH O2 2 LITERS PER N/C.S AGREED TO CHANGE UNDERPAD. CALL LIGHT WITHIN REACH.. LOWER LEGS UP ON PILLOWS. WILL ENDORSE CARE TO AM RN.
[2019-05-08] MEDS: LevALBUTEROL HCL 1.25 MG/0.5 ML *CONC.* VIAL.NEB (XOPENEX CONC.) INH SCH ×3 (07:35→23:20)
--- NOTE | 2019-05-08 07:55 | NUR ---
AM note patient resting in bed, a/ox3-4, reoriented to time, he verbalized understanding, denies pain, assessment complete, skin check complete, IV line is patent and infusing well, patient is on 2l via nasal cannula, educated patient on plan of care and call light system , he verbalized understanding, continuing to monitor, bed in lowest position, three side rails up, bed alarm on, call light within reach, fall and aspiration precautions in place.
[2019-05-08] MEDS: DOXAZOSIN MESYLATE 2 MG TABLET PO SCH ×2 (09:00→21:00)
[2019-05-08] MEDS: METOPROLOL TARTRATE 50 MG TABLET PO SCH ×2 (09:00→21:00)
[2019-05-08] MEDS: cloNIDine HCL 0.2 MG TABLET PO SCH ×4 (09:00→21:00)
[2019-05-08] MEDS: SEVELAMER HCL 800 MG TABLET PO SCH ×3 (09:05→17:49)
[2019-05-08] MEDS: PANTOPRAZOLE SODIUM 40 MG TAB PO SCH (09:06)
[2019-05-08] MEDS: glyBURIDE 5 MG TABLET PO SCH ×2 (09:07→17:49)
[2019-05-08] MEDS: METOCLOPRAMIDE HCL 10 MG TABLET PO SCH ×3 (09:07→17:49)
[2019-05-08] MEDS: BENZONATATE 100 MG CAPSULE (TESSALON) PO SCH ×3 (09:07→23:33)
[2019-05-08] MEDS: ASPIRIN 81 MG TAB.CHEW PO SCH (09:07)
[2019-05-08] MEDS: RIVAROXABAN 10 MG TABLET PO SCH ×2 (09:07→17:53)
[2019-05-08] MEDS: CILOSTAZOL 50 MG TABLET (PLETAL) PO SCH ×2 (09:07→23:33)
--- NOTE | 2019-05-08 09:07 | NUR ---
Medication patient resting in bed, awake, denies pain, educated on morning medications uses and potential side effects, he verbalized understanding and tolerated well, held blood pressure medications per request of hemodialysis nurse, IV line is patent and infusing well, continuing to monitor the patient, patient in stable condition, bed in lowest position, three side rails up, bed alarm on, bed close to nursing station, call light within reach, fall and aspiration precautions in place.
[2019-05-08] MEDS: POLYETHYLENE GLYCOL 3350, 17 GM/ POWD.PACK PO SCH (09:08)
[2019-05-08] MEDS: SANTYL OINTMENT TP SCH (09:08)
[2019-05-08] MEDS: ATORVASTATIN 20 MG TABLET PO SCH (09:08)
--- NOTE | 2019-05-08 09:10 | NUR ---
Hemodialysis nurse at beside, beginning hemodialysis, patient is tolerating well, patient in stable condition.
[2019-05-08] MEDS: cefTRIAXone 1 GM in D5W 50 ML IV SCH (09:18)
--- NOTE | 2019-05-08 10:26 | NUR ---
RN rounds patient resting in bed, awake, denies pain, hemodialysis continues at this time, patient stable at this time, continuing to monitor, bed in lowest position, three side rails up, bed alarm on, call light within reach, fall and aspiration precautions in place.
--- NOTE | 2019-05-08 11:06 | NUR ---
Discharge Planning: DCP faxed referral to Priscilla Britton (f [phone] p [phone]), Kevin ([phone] p [phone]) DCP to follow up Addendum: 05/08/19 at 1125 by Benita Galan DP +++++++WRONG PATIENT ENTRY+++++
[2019-05-08] MEDS: MYCOPHENOLATE MOFETIL 250 MG CAPSULE PO SCH (11:13)
--- NOTE | 2019-05-08 11:16 | NUR ---
RN rounds/medication patient resting in bed, awake, denies pain, hemodialysis continues at this time, blood glucose checked no insulin coverage provided per MD orders, educated on PO medications uses and potential side effects, he verbalized understanding and tolerated well, continuing to monitor, bed in lowest position, three side rails up, bed alarm on, bed close to nursing station, call light within reach, fall and aspiration precautions in place.
--- NOTE | 2019-05-08 11:30 | NUR ---
Discharge Planning: DCP followed up with [facility] (f [phone] p [phone]) lm for Julianne, PT notes were faxed 05/07/19.
--- NOTE | 2019-05-08 11:57 | NUR ---
Called RT patient requesting a breathing treatment, PRN available.
--- NOTE | 2019-05-08 12:00 | NUR ---
Hemodialysis complete 2L out, patient in stable condition.
--- NOTE | 2019-05-08 13:13 | NUR ---
Pt note Attempted to have patient participate with therapy, patient refusing at this time.
--- NOTE | 2019-05-08 14:03 | NUR ---
RN rounds/medication patient resting in bed, awake, denies pain, educated on PO medications uses and potential side effects, he verbalized understanding and tolerated well, patient refusing scheduled Clonidine at this time, educated the patient on benefits of medication and uses, he verbalized understanding and still refused, continuing to monitor, bed in lowest position, three side rails up, bed alarm on, bed close to nursing station, call light within reach, fall and aspiration precautions in place.
--- NOTE | 2019-05-08 16:40 | NUR ---
Rounds/Wound care patient resting in bed,denies pain, family at bedside, wound care performed per wound care nurse orders, patient tolerated well, see MST shift assessment for wound descriptions and treatment, patient has no other need at this time, bed in lowest position, three side rails up, bed alarm on, bed close to nursing station , call light within reach, fall and aspiration precautions in place.
--- NOTE | 2019-05-08 17:52 | NUR ---
RN rounds/medication patient resting in bed, awake, denies pain, blood glucose checked no insulin coverage provided per MD orders, educated on PO medications uses and potential side effects, he verbalized understanding and tolerated well, continuing to monitor, bed in lowest position, three side rails up, bed alarm on, bed close to nursing station, call light within reach, fall and aspiration precautions in place, family is at bedside.
--- NOTE | 2019-05-08 18:32 | NUR ---
Closing note patient resting in bed, awake, denies pain, patient in stable condition, all needs met, will endorse report to NOC shift nurse, bed in lowest position, three side rails up, bed alarm on, call light within reach, family remains at bedside.
--- NOTE | 2019-05-08 20:15 | NUR ---
INITIAL NOTES: PATIENT IN BED AWAKE ORIENTED X3. MANY FAMILIES AT BEDSIDE. IVF AT 60ML/HR. SEE ASSESSMENT FOR MORE DETAILS.
[2019-05-08] MEDS: AZITHROMYCIN 500 MG in NS 250 ML IV SCH (20:29)
[2019-05-08] MEDS: MEGESTROL ACETATE 400 MG/10 ML UDC PO SCH (21:00)
[2019-05-08] MEDS: INSULIN GLARGINE 100 UNITS/ML 10 ML VIAL SUBCUT SCH (21:00)
--- NOTE | 2019-05-08 21:05 | NUR ---
BLOOD SUGAR WITHIN NORMAL LIMITS. DENIES PAIN NOR SOB. KEEP CALLING TO PUSHED HIM UP.
--- NOTE | 2019-05-08 23:20 | NUR ---
REPOSITION UP. CALL LIGHT WITHIN REACH.
[2019-05-09 00:47] VITALS: BP_SYST 99
--- NOTE | 2019-05-09 05:20 | NUR ---
PATIENT CALLED DOES NOT FEEL COLD. FEELS DIZZY. BLOOD SUGAR 121MG/DL. BP 106/65 ITCHING AND FEELS NAUSEATED. ZOFRAN AND BENADRYL IV GIVEN.
[2019-05-09] MEDS: ONDANSETRON HCL 4 MG/2 ML VIAL IVP PRN (05:35)
[2019-05-09] MEDS: DIPHENHYDRAMINE INJ 50 MG/ML VIAL IVP PRN (05:36)
[2019-05-09] MEDS: LevALBUTEROL HCL 1.25 MG/0.5 ML *CONC.* VIAL.NEB (XOPENEX CONC.) INH SCH ×2 (07:06→15:42)
--- NOTE | 2019-05-09 07:15 | NUR ---
INITIAL NOTE RECEIVED PATIENT FROM COMMISSIONER PUBLIC WORKS NURSE, PATIENT RESTING IN BED, NO SIGNS OF DISTRESS NOTED, PATIENT ON 2L NC, IV IN RIGHT FOREARM WITH IV FLUIDS RUNNING, PATIENT HAS LEFT AV SHUNT FOR DIALYSIS, INSTRUCTED PATIENT TO USE CALL [facility] FOR ASSISTANCE, PATIENT VERBALIZED UNDERSTANDING, CALL [facility] WITHIN REACH, BED IN LOWEST POSITION, SIDE RAILS UP, FALL PRECAUTIONS IN PLACE.
--- NOTE | 2019-05-09 07:30 | NUR ---
CLOSING: FULL REPORT GIVEN TO AM RN. PATIENT QUITELY. NO DISTRESS.
[2019-05-09] MEDS: glyBURIDE 5 MG TABLET PO SCH ×2 (08:00→17:32)
[2019-05-09] MEDS: SEVELAMER HCL 800 MG TABLET PO SCH ×3 (08:00→17:31)
[2019-05-09 08:25] VITALS: BP_SYST 102
[2019-05-09] MEDS: cloNIDine HCL 0.2 MG TABLET PO SCH ×2 (08:56→15:00)
[2019-05-09] MEDS: METOPROLOL TARTRATE 50 MG TABLET PO SCH (08:56)
[2019-05-09] MEDS: DOXAZOSIN MESYLATE 2 MG TABLET PO SCH (08:57)
[2019-05-09] MEDS: BENZONATATE 100 MG CAPSULE (TESSALON) PO SCH ×2 (09:00→15:36)
[2019-05-09] MEDS: ATORVASTATIN 20 MG TABLET PO SCH (09:11)
[2019-05-09] MEDS: MEGESTROL ACETATE 400 MG/10 ML UDC PO SCH (09:11)
[2019-05-09] MEDS: ASPIRIN 81 MG TAB.CHEW PO SCH (09:11)
[2019-05-09] MEDS: PANTOPRAZOLE SODIUM 40 MG TAB PO SCH (09:11)
[2019-05-09] MEDS: CILOSTAZOL 50 MG TABLET (PLETAL) PO SCH (09:11)
[2019-05-09] MEDS: POLYETHYLENE GLYCOL 3350, 17 GM/ POWD.PACK PO SCH (09:12)
[2019-05-09] MEDS: MYCOPHENOLATE MOFETIL 250 MG CAPSULE PO SCH (09:12)
[2019-05-09] MEDS: METOCLOPRAMIDE HCL 10 MG TABLET PO SCH ×3 (09:12→17:31)
[2019-05-09] MEDS: RIVAROXABAN 10 MG TABLET PO SCH ×2 (09:13→17:34)
[2019-05-09] MEDS: cefTRIAXone 1 GM in D5W 50 ML IV SCH (09:14)
--- NOTE | 2019-05-09 09:30 | NUR ---
MEDICATIONS PATIENT GIVEN MORNING MEDICATIONS, PATIENT REFUSED CERTAIN MEDICATIONS, BP MEDICATIONS HELD DUE TO LOW BP. ALSO CHECKED BS DUE TO PATIENT FEELING LIKE IT WAS LOW, BS=84, ORANGE JUICE AND CRACKERS GIVEN, INFORMED PATIENT TO EAT MORE OF BREAKFAST. CALL [facility] WITHIN REACH, BED IN LOWEST POSITION, FALL PRECAUTIONS IN PLACE. WILL CONTINUE TO MONITOR.
--- NOTE | 2019-05-09 11:21 | NUR ---
Pt note Patient refusing therapy at this time; will try again at a later time. nursing made aware.
--- NOTE | 2019-05-09 11:35 | NUR ---
Discharge Planning: DCP spoke to Julianne at [facility] (f [phone] p [phone]) pt to go to [facility] # to report [phone] can receive after 6:00pm. Nurse and CM made aware. DC order needed.
[2019-05-09 12:30] VITALS: BP_SYST 100
--- NOTE | 2019-05-09 12:30 | NUR ---
RN ROUNDS ACCUCHECK DONE BS 73, PATIENT GIVEN ORANGE JUICE AND CRACKERS AGAIN, PATIENT STATES HE FEELS FINE, NO SIGNS OF DISTRESS NOTED, WILL CONTINUE TO MONITOR.
--- NOTE | 2019-05-09 13:18 | NUR ---
DR. JOSE INFORMED DR. JOSE THAT PATIENT HAS BEEN REFUSING MORNING MEDICATIONS AND AFTERNOON MEDICATIONS, DR. JOSE STATED OKAY. ALSO INFORMED DR. JOSE THAT PATIENT HAS BED AVAILABLE, ORDER GIVEN TO D/C PATIENT TO [facility]
--- NOTE | 2019-05-09 13:44 | NUR ---
Jamil Mast (f [phone] p [phone]) pt to go to [facility] # to report [phone], transportation with [facility] ([phone]) 6:00pm. Nurse made aware and patient packet taken to nurse station.
[2019-05-09] MEDS: SANTYL OINTMENT TP SCH (14:30)
--- NOTE | 2019-05-09 15:08 | NUR ---
RN ROUNDS PATIENT CURRENTLY RESTING IN BED WITH EYES CLOSED, NO SIGNS OF DISTRESS NOTED, BREATHING EVEN AND UNLABORED, WILL CONTINUE TO MONITOR.
--- NOTE | 2019-05-09 15:37 | NUR ---
DC PLANNING: CM SPOKE WITH PATIENT'S DAUGHTER (SHERRON HAQUE) @ REGARDING PATIENT IS DISCHARGING TODAY TO [facility]. PATIENT'S DAUGHTER AGREED TO THE DISCHARGE.
[2019-05-09 15:51] VITALS: BP_SYST 106
[2019-05-09 16:30] VITALS: BP_SYST 106
--- NOTE | 2019-05-09 16:30 | NUR ---
WOUND CARE WOUND CARE DONE PER WOUND CARE ORDERS PICTURES TAKEN WELL WITH HELP OF CHARGE NURSE
[2019-05-09] MEDS: DEXTROSE 50%-WATER 50 ML DISP.SYRIN IVP PRN (17:28)
--- NOTE | 2019-05-09 17:45 | NUR ---
BS BS 56 D50 GIVEN IVP AND RECHECKED, BS WENT UP TO 134, INFORMED PATIENT TO EAT DINNER TO HELP MAINTAIN GLUCOSE LEVELS, PATIENT VERBALIZED UNDERSTANDING.
[2019-05-09 17:54] VITALS: BP_SYST 106
--- NOTE | 2019-05-09 18:50 | NUR ---
DR. JOSE INFORMED DR. JOSE THAT PATIENT BS DROPPED TO 56 AND D50 WAS GIVEN, 15 MINS BS WAS CHECKED AT 134, ONE HOUR LATER BS WAS 105, DR. JOSE STATED IT WAS OKAY TO TRANSFER PATIENT SINCE BS IS ABOVE 90.
--- NOTE | 2019-05-09 18:53 | NUR ---
PT TRANSFERRED Report given to Ashley TREVINO at [facility]. Transfer packet with Transfer Orders and Medication Reconciliation form given to EMT with report. Exitcare provided. [facility] ID band removed, replaced with ID band with pt's name and . IV catheter remained intact and dressing applied, no signs of infiltration. All belongings sent with patient's daughter. Patient left floor via gurney escorted by EMT in no distress.
== END 2019-05-09 18:53 | DRG 177 ==
LOC: SED 12:09 → STU 14:26
PROVIDERS: ADMIT Family Medicine; ATTEND Family Medicine
PROC: 5A1D70Z Performance of Urinary Filtration, Intermittent, Less than 6 Hours Per Day (ICD-10-PCS; principal; 2019-05-06)
PROC: 5A1D70Z Performance of Urinary Filtration, Intermittent, Less than 6 Hours Per Day (ICD-10-PCS; 2019-05-08)
DX: J15.6 Pneumonia due to other Gram-negative bacteria (principal); N18.6 End stage renal disease; J91.8 Pleural effusion in other conditions classified elsewhere; E11.52 Type 2 diabetes mellitus with diabetic peripheral angiopathy with gangrene; I12.0 Hypertensive chronic kidney disease with stage 5 chronic kidney disease or end stage renal disease; J44.0 Chronic obstructive pulmonary disease with (acute) lower respiratory infection; I96 Gangrene, not elsewhere classified; K81.0 Acute cholecystitis; D64.9 Anemia, unspecified; E11.22 Type 2 diabetes mellitus with diabetic chronic kidney disease; L89.109 Pressure ulcer of unspecified part of back, unspecified stage; F03.90 Unspecified dementia, unspecified severity, without behavioral disturbance, psychotic disturbance, mood disturbance, and anxiety; Z99.2 Dependence on renal dialysis; Z87.891 Personal history of nicotine dependence; Z89.511 Acquired absence of right leg below knee; Z79.899 Other long term (current) drug therapy
CPT/HCPCS: 36415; 71045; 80053; 82550-TC; 82962; 83605; 84484; 85025; 85610-TC; 85730-TC; 87040-TC; 87081; 90935; 90937; 93005; 94640; 94760; 96365; 99285; G0378; J0456; J0696; J1200; J1815; J1956; J2405; J7040; J7042; J7050; J7060; J7517; J7612; J8597; Q0162